=== PATIENT | male | born 1975 | race Caucasian/White ===

== ENCOUNTER 2024-11-11 01:34 | Emergency (ER) | payer BC ==
[2024-11-11 01:49] VITALS: RESP 20
[2024-11-11] MEDS: KETOROLAC 15 MG/ML 1 ML VIAL IM STA (02:32)
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
--- NOTE | 2024-11-11 04:36 | XR ---
EXAM: XR Right Hand, 2 Views CLINICAL HISTORY: reduction TECHNIQUE: Frontal and lateral views of the right hand. COMPARISON: No relevant prior studies available. FINDINGS: Bones/joints: Evaluation in the lateral projection is limited by obliquity at the wrist joint. Subtle persistent subluxation of the proximal metacarpal bones is not excluded in the lateral projection; however, there appears to be interval reduction in the AP projection. Stable degenerative changes involving the 1st carpometacarpal joint. No obvious acute fracture. Soft tissues: Mild soft tissue fullness involving the dorsum of the proximal and. No radiopaque foreign body. IMPRESSION: Limited lateral projection image secondary to obliquity. There appears to be interval reduction in the 4th and 5th proximal metacarpal bones in the frontal projection. Subtle subluxation in the lateral projection is not excluded. Consider repeat lateral projection image.
[2024-11-11 04:41] VITALS: BP 123/85; PULSE 99; TEMP 97.8
== END 2024-11-11 04:39 | disposition home or self-care (01) ==
LOC: EC 01:34
DX: S63.064A Dislocation of metacarpal (bone), proximal end of right hand, initial encounter (principal); F17.290 Nicotine dependence, other tobacco product, uncomplicated; F10.10 Alcohol abuse, uncomplicated; Z88.6 Allergy status to analgesic agent; W22.8XXA Striking against or struck by other objects, initial encounter
CPT/HCPCS: 99283; 26670; 96372; 73120; 73130; J1885